=== PATIENT | male | born 1985 | race Asian ===

== ENCOUNTER 2024-05-18 03:06 | Emergency (ER) | payer OTHER ==
[~2024-05-18] VITALS: Ht 175.3 cm; Wt 65.9 kg
[2024-05-18 03:12] VITALS: TEMP 98.4
[2024-05-18] MEDS ORDERED: Amoxicillin/Clavulanate K+ 875/125 MG TAB PO ONE (05:15)
[2024-05-18] MEDS ORDERED: Chlorhexidine 0.12% Oral Rinse 480 ML BOTTLE MM ONE (05:15)
[2024-05-18] MEDS ORDERED: AMOXICILLIN 8751 TAB PO (05:15)
[2024-05-18] MEDS ORDERED: PERIDEX (CHLOR480 ML MM (05:15)
[2024-05-18 05:21] VITALS: BP 136/102; PULSE 79
[2024-05-18] MEDS ORDERED: Home HYDROcodone/Acetaminophen 5/325 MG #4 TABS/PACK PO ONE (05:30)
== END 2024-05-18 06:10 | disposition home or self-care (01) ==
LOC: COL.ER 03:06
DX: S02.609A Fracture of mandible, unspecified, initial encounter for closed fracture (principal); W22.8XXA Striking against or struck by other objects, initial encounter